=== PATIENT | male | born 1995 ===

== ENCOUNTER 2024-03-18 11:04 | Outpatient (REF) | payer OTHER, SELFPAY | END 2024-03-18 11:05 | disposition home or self-care (01) | LOC: HO.CHCLNP 11:04 | PROVIDERS: Visit Provider Nurse Practitioner Family | DX: Z20.2 Contact with and (suspected) exposure to infections with a predominantly sexual mode of transmission (principal) | CPT/HCPCS: 99212 ==

== ENCOUNTER 2024-03-18 11:04 | Outpatient (AMB) | payer OTHER, SELFPAY ==
--- NOTE | 2024-03-18 11:57 | MHC.OFFWIV ---
Intake Vital Signs 03/18/24 12:06 Height 5 ft 7 in Weight 186 lb BMI 29.1 BP 110/66 Blood Pressure Location Rt brachial Position Sitting Pulse 61 Pulse Source Pulse Oximeter Pulse Oximetry (%) 98 Oxygen Delivery Method Room Air Intake Visit Reasons: [employer] STI testing Intake Note: Patient here because his recently tested positive for chlamydia. He states he is unsure how his has it as she has not slept with anyone else. Pt mentioned he had chlamydia back in 2019 and was treated for it in [place] but did not hear anything after that. Patient Tobacco Use Status: Never used Tobacco Allergies ibuprofen Adverse Reaction (Mild, Verified 03/18/24 12:06) unknown Penicillins Adverse Reaction (Mild, Verified 03/18/24 12:06) unknown Do you need a note to return to daycare/school/sports/work: No HPI [employer] STI testing HPI Details This is a 29 year old male patient who presents to the [place] clinic with report that his tested positive for Chamydia. He states he had Chlamydia back in 2019 and was treated with PO abx. He states he has not had any other partners since then until his current . She reportedly denies any infidelity. Patient would like STI testing. Denies any symptoms. [facility] Social History Patient Tobacco Use Status: Never used Tobacco Review of Systems Const All systems reviewed & are unremarkable except as noted in HPI and below Physical Exam Vital Signs: Last Vital Signs Pulse 61 03/18/24 12:06 BP 110/66 03/18/24 12:06 Pulse Ox 98 03/18/24 12:06 Oxygen Delivery Method Room Air 03/18/24 12:06 BMI result Body Mass Index 29.1 Const General: cooperative, healthy appearing and no acute distress Nutritional Appearance: well nourished Resp Effort & Inspection: normal respiratory effort Skin General skin exam: no rashes or lesions noted Extrem General: Yes no clubbing, cyanosis or edema Psych Appearance: grossly normal Mental Status: mental status grossly normal Speech and movement: Normal speech and movement present Assessment & Plan Assessment & Plan (1) Exposure to sexually transmitted disease (STD): Code(s): Z20.2 - Contact with and (suspected) exposure to infections with a predominantly sexual mode of transmission Plan: Gonorrhea/chlamydia sent via urine sample. Patient was also offered serology for HIV, hep C, RPR, which he desired to have a armed was obtained today. He is aware he will be notified of these results once they are available. We discussed options for treatment, including starting antibiotic regimen today as opposed to waiting for test results, since he has a known exposure to chlamydia. He would like to start antibiotics today. Doxycycline sent. We discussed at length today STI transmission and typical presentation/onset of symptoms since exposure. Advised patient to consider source of infection. All questions were answered and patient verbalizes understanding and agrees to plan. Orders: Orders CT NG by PCR Today Z20.2 - Contact with and (suspected) exposure to infections with a predominantly sexual mode of transmission HIV Ab/Ag Today Z20.2 - Contact with and (suspected) exposure to infections with a predominantly sexual mode of transmission Hepatitis C Antibody Today Z20.2 - Contact with and (suspected) exposure to infections with a predominantly sexual mode of transmission Syphilis Screen Today Z20.2 - Contact with and (suspected) exposure to infections with a predominantly sexual mode of transmission Medications: New doxycycline hyclate Take one capsule twice a day for 7 days. 100 mg PO BID 7 days 14 caps 0RF Z20.2 - Contact with and (suspected) exposure to infections with a predominantly sexual mode of transmission Coding Level of Care Code Est Pt Level 4 (27058) Diagnoses Exposure to sexually transmitted disease (STD) Z20.2
[2024-03-18 12:06] VITALS: BP 110/66; PULSE 61; O2SAT 98; BMI 29.1
== END 2024-03-18 13:03 | disposition home or self-care (01) ==
PROVIDERS: Visit Provider Nurse Practitioner Family
DX: Z20.2 Contact with and (suspected) exposure to infections with a predominantly sexual mode of transmission (principal)

== ENCOUNTER 2024-03-18 13:07 | Outpatient (REF) | payer OTHER, SELFPAY ==
[2024-03-19 04:07] LABS: Syphilis Screen Nonreactive (Nonreactive)
[2024-03-19 04:21] LABS: HIV AB/AG Nonreactive (Nonreactive); HIV Num 1 0.05 S/CO (0.00-0.99); ~HepC Num1 0.24 S/CO (0.00-0.79); ~Hepatitis C Antibody Nonreactive (Nonreactive)
[2024-03-19 05:30] LABS: CT PCR DETECTED (Not Detect.); NG PCR NOT DETECTED (Not Detect.)
== END 2024-03-18 13:08 | disposition home or self-care (01) ==
LOC: HO.HMGCLDS 13:07
PROVIDERS: Visit Provider Nurse Practitioner Family
DX: Z20.2 Contact with and (suspected) exposure to infections with a predominantly sexual mode of transmission (principal)
CPT/HCPCS: 36415; 86780; 86803; 87389; 87491; 87591

== ENCOUNTER 2024-03-25 10:27 | Outpatient (AMB) | payer OTHER, SELFPAY ==
--- NOTE | 2024-03-25 11:15 | MHC.OFFWIV ---
Intake Vital Signs 03/25/24 11:20 Weight 186 lb BP 120/78 Blood Pressure Location Lt brachial Position Sitting Pulse 67 Pulse Source Pulse Oximeter Pulse Oximetry (%) 99 Oxygen Delivery Method Room Air Intake Visit Reasons: EP STD re check Intake Note: Patient here for STD re-check as he was treated for one last week. Patient Tobacco Use Status: Never used Tobacco Allergies ibuprofen Adverse Reaction (Mild, Verified 03/25/24 11:16) unknown Penicillins Adverse Reaction (Mild, Verified 03/25/24 11:16) unknown Do you need a note to return to daycare/school/sports/work: No HPI HPI Comments History of Present Illness Details Patient is a 29-year-old male coming in for a recheck of his sexually transmitted infection. He says he tested positive on March 18 for chlamydia and was prescribed doxycycline to be taken twice a day for 7 days which he completed yesterday. He states his symptoms have improved. He denies any penis or testes pain, abnormal discharge or fevers. His is also being treated. [facility] Social History Patient Tobacco Use Status: Never used Tobacco Review of Systems Const All systems reviewed & are unremarkable except as noted in HPI and below Physical Exam Vital Signs: Last Vital Signs Pulse 67 03/25/24 11:20 BP 120/78 03/25/24 11:20 Pulse Ox 99 03/25/24 11:20 Oxygen Delivery Method Room Air 03/25/24 11:20 Const General: cooperative, healthy appearing, comfortable, no acute distress and well developed Orientation/consciousness: patient oriented x3 Limitations: no limitations HEENT Head: Yes normal to inspection Ears: hearing grossly normal bilaterally General nose exam: Normal external nose present Face and sinus: Yes normal facial exam Eyes General: appearance normal, both eyes and all related structures Neck Neck: Yes normal visual inspection and Yes full ROM Resp Effort & Inspection: normal respiratory effort and able to speak in complete sentences Skin General skin exam: no rashes or lesions noted Neuro General: patient oriented x3 Extrem General: Yes normal to inspection Assessment & Plan Assessment & Plan (1) STI (sexually transmitted infection): Code(s): A64 - Unspecified sexually transmitted disease Plan: Sent urine to verify patient has cleared the disease. Recommended his also come in to have testing for clearance. Plan see above Coding Level of Care Code New Pt Level 3 (79138) Diagnoses STI (sexually transmitted infection) A64
[2024-03-25 11:20] VITALS: BP 120/78; PULSE 67; O2SAT 99
== END 2024-03-25 11:39 | disposition home or self-care (01) ==
PROVIDERS: Visit Provider Physician Assistant
DX: A64 Unspecified sexually transmitted disease (principal)

== ENCOUNTER 2024-03-25 10:27 | Outpatient (REF) | payer OTHER, SELFPAY ==
[2024-03-25 15:23] LABS: CT PCR NOT DETECTED (Not Detect.); NG PCR NOT DETECTED (Not Detect.)
== END 2024-03-25 10:28 | disposition home or self-care (01) ==
LOC: HO.LAB 10:27
PROVIDERS: PCP Physician Assistant; Visit Provider Physician Assistant
DX: A64 Unspecified sexually transmitted disease (principal)
CPT/HCPCS: 87491; 87591; 99202

== ENCOUNTER 2024-11-30 13:07 | Outpatient (AMB) | payer OTHER, SELFPAY ==
--- NOTE | 2024-11-30 13:13 | MHC.OFFWIV ---
Intake Vital Signs 11/30/24 13:15 BP 108/60 Blood Pressure Location Lt brachial Position Sitting Pulse 69 Pulse Source Pulse Oximeter Temp 98.1 F Temp Source Oral Pulse Oximetry (%) 98 Oxygen Delivery Method Room Air Intake Visit Reasons: EP ? food poisoning Intake Note: Patient here for stomach cramping and constipation after eating japanese last night and is unsure if it could be related. Patient Tobacco Use Status: Never used Tobacco Allergies ibuprofen Adverse Reaction (Mild, Verified 11/30/24 13:15) unknown Penicillins Adverse Reaction (Mild, Verified 11/30/24 13:15) unknown Do you need a note to return to daycare/school/sports/work: Yes HPI HPI Comments History of Present Illness Details History of Present Illness - The patient is a 29-year-old male presenting with abdominal pain and constipation since this morning. - He reports severe abdominal pain, which began this morning and causes significant discomfort, affecting his ability to walk and making the stomach feel full like a pit . - There is no associated nausea or vomiting, though there is burping. - Patient experienced some sweating but no fever or chills. - Symptoms began after consuming [place] food the previous evening, leading the patient to suspect food poisoning, despite having constipation rather than diarrhea. - Last normal bowel movement was a couple of days ago, with use of Milk of Magnesia in the past which produced too much stool . - He has been drinking water without issue but has refrained from eating due to the discomfort. Physical Exam General: Cooperative, healthy appearing, comfortable, no acute distress and well developed Orientation: Patient oriented x3 Limitations: No limitations Head: Normal to inspection Ears: Hearing grossly normal bilaterally Nose: Normal External nose present Face and sinus: Normal facial exam Eyes: Appearance normal, both eyes and all related structures Neck: Normal visual inspection and Yes full ROM Respiratory: Normal respiratory effort and able to speak in complete sentences. GI: normoactive bs, soft, slight TTP LLQ, negative Castrejon's, negative McBurney's Skin: No rashes or lesions noted Neuro: Patient oriented x3 Extremities: Normal to inspection [facility] Social History Patient Tobacco Use Status: Never used Tobacco Review of Systems Const All systems reviewed & are unremarkable except as noted in HPI and below Physical Exam Vital Signs: Last Vital Signs Temp 98.1 F 11/30/24 13:15 Pulse 69 11/30/24 13:15 BP 108/60 11/30/24 13:15 Pulse Ox 98 11/30/24 13:15 Oxygen Delivery Method Room Air 11/30/24 13:15 Assessment & Plan Assessment & Plan (1) Constipation: Code(s): K59.00 - Constipation, unspecified Qualifiers: Constipation type: unspecified constipation type Qualified Code(s): K59.00 - Constipation, unspecified Plan: - VSS, pt well appearing, abdominal exam benign. - Advise the use of Dulcolax (bisacodyl) for constipation management; instruct to take a single pill at night, expecting potential cramping as it facilitates bowel movements. - Increase dietary fiber intake using supplements like Metamucil and encourage consistent daily fluid intake. - Monitor symptoms for any signs suggesting complications, specifically looking for bloody or black stools or developing a fever, which necessitate emergency care. - Recognition that no immediate further diagnostic or surgical intervention is indicated based on the examination. - Patient consented to receive a note excusing one workday to rest post-laxative use. - Reviewed all of the ways to relieve constipation. Patient was informed and verbally consented to the use of an ambient scribe for clinic note documentation during this visit. Coding Level of Care Code New Pt Level 3 (02737) Diagnoses Constipation, unspecified constipation type K59.00 Constipation type: unspecified constipation type
[2024-11-30 13:15] VITALS: BP 108/60; PULSE 69; TEMP 36.7; O2SAT 98
== END 2024-11-30 14:05 | disposition home or self-care (01) ==
PROVIDERS: PCP Physician Assistant; Visit Provider Physician Assistant
DX: K59.00 Constipation, unspecified (principal)

== ENCOUNTER → 2024-11-30 13:07 | Outpatient (BNVA) | payer OTHER, SELFPAY | PROVIDERS: PCP Physician Assistant | DX: K59.00 Constipation, unspecified (principal) | CPT/HCPCS: 99212 ==

== ENCOUNTER 2025-06-10 12:54 | Outpatient (AMB) | payer OTHER, SELFPAY ==
--- NOTE | 2025-06-10 13:08 | AM.OFFWIN_ITS ---
Intake Vital Signs 06/10/25 13:09 Height 5 ft 7 in Weight 127 lb BMI 19.9 BP 118/62 Blood Pressure Location Rt brachial Position Sitting Pulse 68 Pulse Source Pulse Oximeter Temp 97.9 F Temp Source Oral Pulse Oximetry (%) 97 Oxygen Delivery Method Room Air Intake Visit Reasons: EP sore thraot Intake Note: Patient presents c/o sore throat x2 days Patient Tobacco Use Status: Never used Tobacco Allergies ibuprofen Adverse Reaction (Mild, Verified 06/10/25 13:11) unknown Penicillins Adverse Reaction (Mild, Verified 06/10/25 13:11) unknown Do you need a note to return to daycare/school/sports/work: Yes HPI HPI Comments History of Present Illness Details History - The patient is a 30 year old male pres enting with a sore throat. - The sore throat began two days ago. - He reports that coworkers were recentl y sick, with one diagnosed with bronchitis. - He denies cough, congestion, fever, sh ortness of breath, or wheezing. - He also denies sinus pain, ear pain, h eadaches, or fatigue. - A rapid strep test was performed prior to the examination and was negative. - He has no past medical history of asth ma or COPD. Review of Systems - Constitutional: Denies fevers and fati fatou. - HEENT: Reports a sore throat. Denies s inus pain, ear pain, and headaches. - Neck: Reports a sensation of fullness. - Respiratory: Denies cough, shortness o f breath, and wheezing. All systems reviewed and are unremarkable except as noted in HPI Physical Exam General: Cooperative, healthy appearing, comfortable and no acute distress Orientation/consciousness: Patient oriented x3 Limitations: No limitations Head: Normal to inspection Ears: Hearing grossly normal bilaterally, external ears normal, EAC's normal bilaterally and TM's normal bilaterally Nose: Normal external nose present, Normal nares present and No nasal discharge present Face and sinus: Normal facial exam and sinuses nontender Mouth: Normal oral and palatal mucosa present and moist mucous membranes Throat: Tonsils normal, no exudates, uvula midline, posterior oropharynx mild erythema Eyes: Appearance normal, both eyes and all related structures Neck: Normal visual inspection, full ROM, no swelling or tenderness in lymph nodes Respiratory: Clear to auscultation bilaterally. Normal respiratory effort, able to speak in complete sentences, no respiratory distress, not tachypneic, no tripod positioning and no use of accessory muscles Cardiovascular: Regular rate and rhythm. Normal S1 and S2 Skin: No rashes or lesions noted Neuro: Patient oriented x3 Extremities: Normal to inspection and Yes no clubbing, cyanosis or edema PFSH Social History Patient Tobacco Use Status: Never used Tobacco Physical Exam Vital Signs: Last Vital Signs Temp 97.9 F 06/10/25 13:09 Pulse 68 06/10/25 13:09 BP 118/62 06/10/25 13:09 Pulse Ox 97 06/10/25 13:09 Oxygen Delivery Method Room Air 06/10/25 13:09 BMI result Body Mass Index 19.9 Results AMB Rapid Strep AMB Rapid Strep Negative Last Edit by Gissel Taylor CMA on 06/10/25 13: 28 Results Reviewed Results Reviewed: Laboratory Last Values Strep Scn Rapid Clinic Negative 06/10/25 13:27 Assessment & Plan Assessment & Plan (1) URI, acute: Code(s): J06.9 - Acute upper respiratory infection, unspecified Plan: Patient was informed and verbally consented to the use of an ambient scribe for clinic note documentation during this visit. - VSS, pt well appearing and PE unremarkable. - The patient's symptoms are suspected to be from a viral pharyngitis, likely rhinovirus, given the prevalence and negative rapid strep test. - To rule out other common viral causes, a combined flu, COVID, and RSV nasal swab was collected and will be sent for testing, with results expected tomorrow. - For symptomatic relief, hot tea with honey was recommended. - The patient was advised to take Tylenol if he develops a fever and to use a decongestant and antihistamine if congestion begins. - The patient was educated on the possibility that symptoms could worsen or improve and was advised on preventive measures including frequent hand washing and wearing a mask to avoid transmission. - The clinic will call with the test results. Orders: Orders AMB Rapid Strep Screen Today Z13.9 - Encounter for screening, unspecified SARS-CoV2/FLU/RSV Today R09.89 - Other specified symptoms and signs involving the circulatory and respiratory systems Coding Level of Care Code New Pt Level 3 (75638) Diagnoses URI, acute J06.9
[2025-06-10 13:09] VITALS: BP 118/62; PULSE 68; TEMP 36.6; O2SAT 97; BMI 19.9
== END 2025-06-10 14:03 | disposition home or self-care (01) ==
PROVIDERS: Visit Provider Physician Assistant
DX: Z13.9 Encounter for screening, unspecified (principal); J06.9 Acute upper respiratory infection, unspecified

== ENCOUNTER 2025-06-10 12:54 | Outpatient (REF) | payer OTHER, SELFPAY ==
[2025-06-10 18:42] LABS: Resp Syncy Virus RNA Qual PCR NEGATIVE (Negative); SARS COV2 PCR INHOUSE NEGATIVE (Negative)
== END 2025-06-10 12:55 | disposition home or self-care (01) ==
LOC: HO.LAB 12:54
PROVIDERS: Physician Assistant
DX: J06.9 Acute upper respiratory infection, unspecified (principal); R09.89 Other specified symptoms and signs involving the circulatory and respiratory systems
CPT/HCPCS: 87637; 87880; 99212